=== PATIENT | male | born 1945 | race Caucasian/White ===

== ENCOUNTER → 2017-06-16 | Day surgery (SDC) | payer MEDICARE, BC ==
[~2017-06-16] MED LIST: Lactated Ringers 1,000 ML IV SCH; Sodium Chloride 0.9% 10 ML Syringe FLUSH PRN
[2017-06-16 08:57] VITALS: BP 149/92
--- NOTE | 2017-06-16 09:17 | PCM.SN ---
- Free Text/Narrative Note: Pt has cardiac stress test scheduled for tomorrow. I was not aware of this when pt scheduled. Will wait for this to be done before doing egd.
== END ==
LOC: FB.SDS 08:14
PROVIDERS: ATTEND Surgery
DX: R14.0 Abdominal distension (gaseous) (principal); Z53.8 Procedure and treatment not carried out for other reasons